=== PATIENT | male | born 1990 | race Asian ===

== ENCOUNTER 2022-06-17 21:16 | Emergency (ER) | payer OTHER ==
[~2022-06-17] VITALS: Ht 182.9 cm; Wt 113.4 kg
[2022-06-17 23:05] VITALS: BP 135/74
[2022-06-17] MEDS ORDERED: COLCHICINE 0.6 MG TAB PO ONE (23:25)
[2022-06-17] MEDS ORDERED: KETOROLAC 30 MG/ML VIAL IM ONE (23:25)
[2022-06-17] MEDS ORDERED: NAPR-54 PO (23:27)
[2022-06-17] MEDS ORDERED: COLC-30 PO (23:27)
--- NOTE | 2022-06-17 23:31 | NUR ---
PT IS HERE BECUASE LEFT TOE NAIL AND WANTED TO KNOW IF THE THERE IS ANYTHING WRONG WITH THE BONE. PT MENTIONED THAT PRIMARY DOCTOR PRESCIRBED THE MEDICATION (ALLUPURINOL 100 MG) FOR SUSPECTED GOUT. PT IS ALERT AND ORIENTED X4
--- NOTE | 2022-06-17 23:31 | NUR ---
PT IS HERE BECAUSE OF PAIN IN THE LEFT TOE. PT IS USING CAN TO WALK.
--- NOTE | 2022-06-17 23:36 | NUR ---
PT RETURN FROM [facility] TO [facility]
[2022-06-18] MEDS ORDERED: COLCHICINE 0.6 MG TAB PO ONE (00:05)
[2022-06-18 00:54] VITALS: BP 130/74
--- NOTE | 2022-06-18 04:32 | NUR ---
Patient discharged with v/s stable. Written and verbal after care instructions given and explained. Patient verbalized understanding. Ambulatory with steady gait. All questions addressed prior to discharge. Advised to follow up with PMD. pt left with his belongings
== END 2022-06-18 00:54 | disposition home or self-care (01) ==
LOC: MED 21:16
DX: M10.072 Idiopathic gout, left ankle and foot (principal); Z79.899 Other long term (current) drug therapy; Z79.1 Long term (current) use of non-steroidal anti-inflammatories (NSAID); Z91.018 Allergy to other foods
CPT/HCPCS: 73620; 96372; 99283; J1885